=== PATIENT | female | born 1975 | race African-American/Black ===

== ENCOUNTER 2017-06-07 08:52 | Emergency (ER) | payer OTHER ==
[~2017-06-07] VITALS: Ht 167.6 cm; Wt 81.7 kg
[~2017-06-07 08:52] MED LIST: AZITHROMYCIN 2250 MG PO; BACTRIM DS TAB1 EACH PO; CATAPRES0.1 MG PO; FLEXERIL PO; NAPROSYN500 MG PO; NORCO 5-325 TA1 EACH PO; NORVASC5 MG PO
[2017-06-07 09:10] LABS: URINE BILIRUBIN NEGATIVE (Negative); URINE BLOOD NEGATIVE (Negative); URINE COLOR YELLOW; URINE GLUCOSE-RANDOM* NEGATIVE (Negative); URINE KETONES NEGATIVE (Negative); URINE NITRITE NEGATIVE (Negative); URINE PROTEIN (DIPSTICK) NEGATIVE (Negative); URINE SPECIFIC GRAVITY 1.025 (1.003-1.035); URINE UROBILINOGEN 0.2 E.U./dl (0.2-1.0)
[2017-06-07 09:39] LABS: ABSOLUTE NEUTROPHILS 3.6 thou/uL (1.4-8.2); BASOPHILS 0.7 % (0.0-2.0); EOSINOPHILS 2.7 % (0.0-3.0); HEMATOCRIT 38.2 % (37.0-47.0); HEMOGLOBIN 12.6 gm/dL (12.0-15.0); LYMPHOCYTES 21.3 % (24.0-44.0); MCH 30.9 pg (26.0-34.0); MCHC 33.1 g/dL (28.0-37.0); MCV 93.4 fL (80.0-100.0); MONOCYTES 8.2 % (1.0-8.0); PLATELET COUNT 198 thou/uL (150-400); POLYS 67.1 % (36.0-66.0); RBC 4.09 mil/uL (4.20-5.00); RDW 14.2 % (10.5-14.5); WBC 5.4 thou/uL (4.0-11.0)
[2017-06-07 09:44] LABS: MANUAL DIFF NO
[2017-06-07 09:49] LABS: CALCIUM 9.3 mg/dL (8.5-10.1); CREATININE 0.8 mg/dL (0.6-1.0); POTASSIUM 3.4 mmol/L (3.5-5.1)
[2017-06-07 09:56] LABS: TOTAL BILIRUBIN 0.6 mg/dL (<0.1-1.0); TOTAL PROTEIN 8.3 g/dL (6.4-8.2)
[2017-06-07 10:41] VITALS: BP 175/82
== END 2017-06-07 10:43 | disposition home or self-care (01) ==
LOC: ER 08:52
PROVIDERS: Nurse Practitioner
DX: R53.1 Weakness (principal); I10 Essential (primary) hypertension; F17.210 Nicotine dependence, cigarettes, uncomplicated; F10.99 Alcohol use, unspecified with unspecified alcohol-induced disorder